=== PATIENT | male | born 1965 | race African-American/Black ===

== ENCOUNTER 2019-07-13 15:50 | Emergency (ER) | payer MEDICAID, OTHER ==
[~2019-07-13] VITALS: Ht 172.7 cm; Wt 99.8 kg
[2019-07-13 19:55] LABS: Basophils # (auto) 0.1 uL; Basophils % (auto) 0.9 % (0.0-2.0); Eosinophils # (auto) 0.4 uL; Eosinophils % (auto) 2.9 % (0.0-7.0); Hematocrit 46.5 % (41.0-53.0); Hemoglobin 15.5 g/dL (13.5-17.5); Lymphocytes # (auto) 2.8 uL; Lymphocytes % (auto) 20.5 % (10.0-50.0); Mean Corpuscular Hemoglobin 26.9 pg (28.0-32.0); Mean Corpuscular Hgb Conc. 33.3 g/dL (32.0-36.0); Mean Corpuscular Volume 80.6 fL (80.0-100.0); Monocytes % (auto) 7.5 % (0.0-12.0); Neutrophils # (auto) 9.3 uL; Neutrophils % (auto) 68.2 % (37.0-80.0); Nucleated Red Blood Cells % 0.1 %; Platelet Count (auto) 268 10^3/uL (140-450); Red Blood Cells 5.77 10^6/uL (4.5-5.90); Red Cell Distribution Width 16.1 % (11.8-14.3); White Blood Cell 13.6 10^3/uL (4.4-10.8)
[2019-07-13 20:09] LABS: INR 1.05 (0.9-1.15); Partial Thromboplastin Time 27.9 sec (23.64-32.05)
[2019-07-13] MEDS ORDERED: IOHEXOL 350 MG/ML 100ML IJ ONE (20:12)
[2019-07-13 20:16] LABS: Albumin 3.6 g/dL (3.4-5.0); BUN/Creatinine Ratio 10.7; Potassium 3.7 mmol/L (3.5-5.1)
[2019-07-13 20:19] LABS: Bilirubin, Total 0.2 mg/dL (0.2-1.0); Total Protein 7.8 g/dL (6.4-8.2)
[2019-07-13] MEDS ORDERED: MORPHINE SULFATE 4 MG/ML SYR/VIAL ONE (20:44)
[2019-07-13] MEDS ORDERED: ONDANSETRON HCL 4 MG/2 ML VIAL ONE (20:45)
[2019-07-13] MEDS ORDERED: MORPHINE SULFATE 4 MG/ML SYR/VIAL IV ONE (21:00)
[2019-07-13] MEDS ORDERED: ONDANSETRON HCL 4 MG/2 ML VIAL IV ONE (21:00)
[2019-07-13] MEDS ORDERED: ENOXAPARIN SOD 100 MG/1 ML SYRINGE SC ONE (23:30)
[2019-07-14 00:44] VITALS: BP 155/98
== END 2019-07-14 00:43 | disposition short-term general hospital (02) ==
LOC: ER 15:59
DX: I74.3 Embolism and thrombosis of arteries of the lower extremities (principal); F17.210 Nicotine dependence, cigarettes, uncomplicated; I10 Essential (primary) hypertension; M79.662 Pain in left lower leg
CPT/HCPCS: 36415; 75635; 80053; 85025; 85610; 85730; 93926; 96374; 96375; 99285; J2270; J2405; Q9967

== ENCOUNTER 2021-01-30 10:19 | Emergency (ER) | payer MEDICAID ==
[~2021-01-30] VITALS: Ht 172.7 cm; Wt 90.7 kg
[2021-01-30 11:38] VITALS: BP 140/96
== END 2021-01-30 12:12 | disposition home or self-care (01) ==
LOC: ER 10:19
DX: M25.50 Pain in unspecified joint (principal); I10 Essential (primary) hypertension; F17.210 Nicotine dependence, cigarettes, uncomplicated

== ENCOUNTER 2022-06-10 07:23 | Inpatient (IN) | payer MEDICAID ==
[~2022-06-10] VITALS: Ht 170.2 cm; Wt 97.0 kg
[2022-06-10 08:08] LABS: Basophils # (auto) 0.1 10 ^3/uL (0-0.2); Eosinophils # (auto) 0 10 ^3/uL (0-0.8); Monocytes # (auto) 0.8 10 ^3/uL (0-1.3); Neutrophils % (auto) 86.4 % (37.0-80.0)
[2022-06-10 08:11] LABS: Basophils % (auto) 0.5 % (0.0-2.0); Eosinophils % (auto) 0.4 % (0.0-7.0); Hematocrit 51.7 % (41.0-53.0); Hemoglobin 16.7 g/dL (13.5-17.5); Lymphocytes # (auto) 0.6 10 ^3/uL (0.4-5.4); Lymphocytes % (auto) 5.4 % (10.0-50.0); Mean Corpuscular Hemoglobin 26.2 pg (28.0-32.0); Mean Corpuscular Hgb Conc. 32.3 g/dL (32.0-36.0); Mean Corpuscular Volume 81.3 fL (80.0-100.0); Monocytes % (auto) 7.3 % (0.0-12.0); Nucleated Red Blood Cells % 0.1 %; Red Blood Cells 6.35 10^6/uL (4.5-5.90); Red Cell Distribution Width 15.7 % (11.8-14.3); White Blood Cell 10.4 10^3/uL (4.4-10.8)
[2022-06-10 09:08] LABS: Alanine Aminotransferase 62 U/L (16-61); Albumin 3.9 g/dL (3.4-5.0); Anion Gap 6 (5-15); Aspartate Aminotransferase 42 U/L (15-37); BUN/Creatinine Ratio 8.8; Blood Urea Nitrogen 9 mg/dL (7-18); Calcium 9.1 mg/dL (8.5-10.1); Carbon Dioxide 28 mmol/L (21-32); Chloride 108 mmol/L (98-107); GFR African American 96 mL/min; GFR Non-African American 79 mL/min; Glucose 114 mg/dL (74-106); Potassium 4.8 mmol/L (3.5-5.1); Sodium 142 mmol/L (136-145)
[2022-06-10 09:11] LABS: Alkaline Phosphatase 93 U/L (45-117); Bilirubin, Total 0.3 mg/dL (0.2-1.0); Total Protein 7.6 g/dL (6.4-8.2)
[2022-06-10] MEDS ORDERED: AMLO-496 PO (17:13)
[2022-06-10] MEDS ORDERED: HYDR25TA5 PO (17:13)
[2022-06-10] MEDS ORDERED: ATOR40TA52 PO (17:13)
[2022-06-10] MEDS ORDERED: HYDROcodone-ACET 5/325MG TAB PO PRN (17:15)
[2022-06-10] MEDS ORDERED: ACETAMINOPHEN 325 MG TAB PO PRN (17:15)
[2022-06-10] MEDS ORDERED: MORPHINE SULFATE INJ 2 MG/ml SYRG IV PRN ×2 (17:15)
[2022-06-10] MEDS ORDERED: hydrALAZINE HCL 20 MG/ML VL IV PRN (17:15)
[2022-06-10] MEDS ORDERED: NITROGLYCERIN 0.4 MG SL TAB SL PRN (17:15)
[2022-06-10] MEDS ORDERED: AZITHROMYCIN 500MG/ 250ML 250 ML IV ONE (17:30)
[2022-06-10] MEDS ORDERED: ENOXAPARIN SOD 100 MG/1 ML SYRINGE SC ONE (17:30)
[2022-06-10] MEDS ORDERED: IOHEXOL 350 MG/ML 100ML IJ ONE ×2 (17:33→20:20)
[2022-06-10 18:57] LABS: INR 1.08 (0.9-1.15)
[2022-06-10 19:32] LABS: Cholesterol 63 mg/dL (< 200); Triglycerides 58 mg/dL (< 150)
[2022-06-10 19:34] LABS: HDL Cholesterol 31 mg/dL (40-59); LDL Cholesterol 38 mg/dL (< 100)
[2022-06-10 21:01] LABS: Amphetamine Screen, Urine NEGATIVE (NEGATIVE); Barbiturate Scree,Urine NEGATIVE (NEGATIVE); Benzodiazephine Screen, Urine NEGATIVE (NEGATIVE); Cannabinoid Screen, Urine NEGATIVE (NEGATIVE); Cocaine Screen, Urine NEGATIVE (NEGATIVE); Opiate Scree,Urine NEGATIVE (NEGATIVE); Phencyclidine Screen, Urine NEGATIVE (NEGATIVE)
[2022-06-10 21:14] LABS: Urine Bacteria NONE SEEN /hpf (None Seen); Urine Blood Negative /uL (Negative); Urine Hyaline Cast FEW /lpf (0 - 2); Urine Mucus FEW (None Seen); Urine Specific Gravity 1.025 (1.001-1.035); Urine WBC 3 /hpf (0 - 3)
[2022-06-10] MEDS: methylPREDNISolone SOD SUCC 125 MG/2 ML VL IV SCH (21:57)
[2022-06-10 22:00] VITALS: BP 123/69
[2022-06-11 05:03] LABS: Basophils # (auto) 0 10 ^3/uL (0-0.2); Eosinophils # (auto) 0 10 ^3/uL (0-0.8); Lymphocytes # (auto) 0.5 10 ^3/uL (0.4-5.4); Monocytes # (auto) 0.2 10 ^3/uL (0-1.3); Neutrophils # (auto) 5.6 10 ^3/uL (1.6-8.6); Red Cell Distribution Width 15.3 % (11.8-14.3); White Blood Cell 6.3 10^3/uL (4.4-10.8)
[2022-06-11 05:06] LABS: Basophils % (auto) 0.5 % (0.0-2.0); Hematocrit 51.3 % (41.0-53.0); Hemoglobin 16.8 g/dL (13.5-17.5); Lymphocytes % (auto) 7.6 % (10.0-50.0); Mean Corpuscular Hemoglobin 26.5 pg (28.0-32.0); Mean Corpuscular Hgb Conc. 32.9 g/dL (32.0-36.0); Mean Corpuscular Volume 80.5 fL (80.0-100.0); Monocytes % (auto) 2.9 % (0.0-12.0); Nucleated Red Blood Cells % 0.2 %; Red Blood Cells 6.37 10^6/uL (4.5-5.90)
[2022-06-11 05:34] LABS: Albumin 3.6 g/dL (3.4-5.0); Potassium 5.2 mmol/L (3.5-5.1)
[2022-06-11 05:38] LABS: BUN/Creatinine Ratio 12.6
[2022-06-11 05:44] LABS: Bilirubin, Total 0.3 mg/dL (0.2-1.0)
[2022-06-11] MEDS: HCTZ 25 MG TAB PO SCH (06:46)
[2022-06-11] MEDS: methylPREDNISolone SOD SUCC 125 MG/2 ML VL IV SCH ×2 (10:39→22:11)
[2022-06-11] MEDS: ATORVASTATIN 20 MG TAB PO SCH (10:39)
[2022-06-11] MEDS: amLODIPine BESYLATE 5 MG TAB PO SCH (10:40)
[2022-06-11] MEDS: ENOXAPARIN SOD 40 MG/0.4 ML SYRINGE SC SCH (10:40)
[2022-06-11] MEDS: NICOTINE 7MG/24HR TOPICAL PATCH TD SCH (10:41)
[2022-06-11 14:21] VITALS: BP 102/52
[2022-06-11] MEDS: AZITHROMYCIN 500MG/ 250ML 250 ML IV SCH (14:52)
[2022-06-11 15:30] VITALS: BP 102/52
[2022-06-11] MEDS ORDERED: ATOR40TA52 PO (15:45)
[2022-06-11] MEDS ORDERED: ASPI1TAB20 PO (15:45)
[2022-06-11 17:00] VITALS: BP 131/84
[2022-06-11] MEDS: IPRATROPIUM BROM 0.5 MG/2.5ML INH SOL NEB SCH (19:28)
[2022-06-11] MEDS: ALBUTEROL SULF 2.5 MG/0.5ML(0.5%) NEB SOLN NEB SCH (19:28)
[2022-06-11] MEDS: BUDESONIDE (INHALATION) 0.5 MG/2 ML NEB NEB SCH (19:29)
[2022-06-12 05:00] VITALS: BP 122/70
[2022-06-12 06:49] LABS: Basophils # (auto) 0 10 ^3/uL (0-0.2); Eosinophils # (auto) 0 10 ^3/uL (0-0.8); Hemoglobin 16.3 g/dL (13.5-17.5); Lymphocytes # (auto) 0.9 10 ^3/uL (0.4-5.4); Neutrophils # (auto) 11.7 10 ^3/uL (1.6-8.6); Nucleated Red Blood Cells % 0.1 %
[2022-06-12 06:51] LABS: Basophils % (auto) 0.1 % (0.0-2.0); Eosinophils % (auto) 0.1 % (0.0-7.0); Lymphocytes % (auto) 6.9 % (10.0-50.0); Mean Corpuscular Hemoglobin 26.3 pg (28.0-32.0); Mean Corpuscular Volume 82.2 fL (80.0-100.0); Monocytes # (auto) 0.8 10 ^3/uL (0-1.3); Monocytes % (auto) 5.8 % (0.0-12.0); Neutrophils % (auto) 87.1 % (37.0-80.0); Red Cell Distribution Width 15.8 % (11.8-14.3); White Blood Cell 13.4 10^3/uL (4.4-10.8)
[2022-06-12 06:58] LABS: Albumin 3.4 g/dL (3.4-5.0); Calcium 9.2 mg/dL (8.5-10.1); Potassium 5.1 mmol/L (3.5-5.1)
[2022-06-12 07:01] LABS: BUN/Creatinine Ratio 25.5; Bilirubin, Total 0.3 mg/dL (0.2-1.0)
[2022-06-12] MEDS: IPRATROPIUM BROM 0.5 MG/2.5ML INH SOL NEB SCH ×2 (07:09→11:52)
[2022-06-12] MEDS: ALBUTEROL SULF 2.5 MG/0.5ML(0.5%) NEB SOLN NEB SCH ×2 (07:09→11:52)
[2022-06-12] MEDS: BUDESONIDE (INHALATION) 0.5 MG/2 ML NEB NEB SCH (07:10)
[2022-06-12] MEDS: HCTZ 25 MG TAB PO SCH (07:22)
[2022-06-12 09:00] VITALS: BP 98/57
[2022-06-12] MEDS: methylPREDNISolone SOD SUCC 125 MG/2 ML VL IV SCH ×2 (09:57→14:05)
[2022-06-12] MEDS: ENOXAPARIN SOD 40 MG/0.4 ML SYRINGE SC SCH (09:58)
[2022-06-12] MEDS: NICOTINE 7MG/24HR TOPICAL PATCH TD SCH (09:58)
[2022-06-12] MEDS: ATORVASTATIN 20 MG TAB PO SCH (09:58)
[2022-06-12] MEDS: amLODIPine BESYLATE 5 MG TAB PO SCH (10:06)
[2022-06-12 13:00] VITALS: BP 118/88
[2022-06-12] MEDS: AZITHROMYCIN 500MG/ 250ML 250 ML IV SCH (14:04)
[2022-06-12] MEDS ORDERED: PRED20TA2 PO (15:26)
[2022-06-12] MEDS ORDERED: ALBUAER3 IN (15:29)
[2022-06-12] MEDS ORDERED: BUDE1AER4 IN (15:29)
[2022-06-12 16:39] VITALS: BP 118/88
[2022-06-13 13:33] LABS: Hepatitis B Surface Antibody Negative (Negative)
[2022-06-13 14:10] LABS: Hepatitis A Total Antibody Negative (Negative)
[2022-06-13 14:35] LABS: Hepatitis C Antibody Negative (Negative)
== END 2022-06-12 17:55 | disposition home or self-care (01) | DRG 140 ==
LOC: ER 07:23 → TELE 17:09 → TELE-WESTW 06-11 12:36
PROVIDERS: ADMIT Registered Nurse; ATTEND Nurse Practitioner Acute Care
DX: J44.1 Chronic obstructive pulmonary disease with (acute) exacerbation (principal); J96.21 Acute and chronic respiratory failure with hypoxia; I11.0 Hypertensive heart disease with heart failure; J18.9 Pneumonia, unspecified organism; I50.9 Heart failure, unspecified; J44.0 Chronic obstructive pulmonary disease with (acute) lower respiratory infection; E66.01 Morbid (severe) obesity due to excess calories; R91.1 Solitary pulmonary nodule; R74.01 Elevation of levels of liver transaminase levels; Z68.33 Body mass index [BMI] 33.0-33.9, adult; F17.210 Nicotine dependence, cigarettes, uncomplicated; Z79.51 Long term (current) use of inhaled steroids; Z82.49 Family history of ischemic heart disease and other diseases of the circulatory system; Z89.512 Acquired absence of left leg below knee; Z71.6 Tobacco abuse counseling
CPT/HCPCS: 36415; 71045; 71275; 80053; 80061; 80307; 80320; 81001; 83036; 83605; 83735; 83880; 84443; 84484; 85025; 85379; 85610; 86704; 86706; 86708; 86803; 87040; 87340; 87426; 87804; 93005; 93306; 94640; 96365; 96372; G0378